=== PATIENT | male | born 1955 | race Caucasian/White ===

== ENCOUNTER → 2018-10-03 | Outpatient (CLI) | payer OTHER ==
[~2018-10-03] MED LIST: ceFAZolin 1 GM VIAL ONE
== END ==
LOC: CIMAGING 15:34
PROVIDERS: ATTEND Family Medicine
DX: R91.8 Other nonspecific abnormal finding of lung field (principal); S22.070A Wedge compression fracture of T9-T10 vertebra, initial encounter for closed fracture; M89.8X8 Other specified disorders of bone, other site
CPT/HCPCS: 71046-PO; 72070-PO; J0690

== ENCOUNTER 2018-10-05 13:17 | Day surgery (SDC) | payer OTHER ==
[2018-10-05] MEDS ORDERED: LR 1,000 ML IV ONE (13:51)
[2018-10-05] MEDS ORDERED: LIDOCAINE 1% 300 MG/30 ML SDV ONE (13:57)
[2018-10-05] MEDS ORDERED: BUPIVACAINE 0.5% 30 ML SDV ONE (13:57)
[2018-10-05] MEDS ORDERED: ceFAZolin 2 GM/DEXTROSE 100 ML IV ONE (14:48)
[2018-10-05] MEDS ORDERED: MIDAZOLAM 2 MG/2 ML VIAL IVP ONE (14:54)
--- NOTE | 2018-10-05 14:58 | PDANEPAE ---
ANE History of Present Illness Right cervical Bx ANE Past Medical History - Cardiovascular History Hx Hypertension: No Hx Arrhythmias: No Hx Chest Pain: No Hx Coronary Artery / Peripheral Vascular Disease: No Hx CHF / Valvular Disease: No Hx Palpitations: No - Pulmonary History Hx COPD: No Hx Asthma/Reactive Airway Disease: No Hx Recent Upper Respiratory Infection: No Hx Oxygen in Use at Home: No Hx Sleep Apnea: No Sleep Apnea Screening Result - Last Documented: Negative - Neurologic History Hx Cerebrovascular Accident: No Hx Seizures: No Hx Dementia: No - Endocrine History Hx Diabetes: No Hypothyroid: No Hyperthyroid: No Obesity: no - Renal History Hx Renal Disorders: No - Liver History Hx Hepatic Disorders: No - Neurological & Psychiatric Hx Hx Neurological and Psychiatric Disorders: No - Cancer History Hx Cancer: Yes Cancer History Comment: poss lymphoma - Congenital Disorder History Hx Congenital Disorders: No - GI History GERD: no Hx Gastrointestinal Disorders: No - Chronic Pain History Chronic Pain: Yes - Surgical History Prior Surgeries: vascetomy ANE Review of Systems Review of Systems: - Exercise capacity METS (RN): 5 METS ANE Patient History - Allergies Allergies/Adverse Reactions: No Known Allergies Allergy (Unverified 10/05/18 13:48) - Home Medications Home Medications: Ibuprofen 10/05/18 [Last Taken 10/05/18] Methocarbamol 750 mg PO PRN PRN 10/05/18 [Last Taken 10/04/18] traMADol [Ultram 50 mg (*)] 10/05/18 [Last Taken 10/05/18] - NPO status NPO Since - Liquids (Date): 10/05/18 NPO Since - Liquids (Time): 13:00 NPO Since - Solids (Date): 10/03/18 - Anes Hx Anes Hx: no prior problems - Smoking Hx Smoking Status: Never smoked - Family Anes Hx Family Hx Anesthesia Complications: na ANE Labs/Vital Signs - Vital Signs Blood Pressure: 158/96 Heart Rate: 106 Respiratory Rate: 16 O2 Sat (%): 98 Height: 184.79 cm Weight: 75.296 kg ANE Physical Exam - Airway Neck exam: FROM Mallampati Score: Class 1 Mouth exam: normal dental/mouth exam - Pulmonary Pulmonary: no respiratory distress, no rales or rhonchi - Cardiovascular Cardiovascular: regular rate and rhythym, no murmur, rub, or gallop ANE Anesthesia Plan Anesthesia Plan: MAC Total IV Anesthesia: Yes
[2018-10-05] MEDS ORDERED: MIDAZOLAM 2 MG/2 ML VIAL ONE (15:01)
[2018-10-05] MEDS ORDERED: fentaNYL 100 MCG/2 ML INJ ONE (15:04)
[2018-10-05] MEDS ORDERED: PROPOFOL/EMULSION 500 MG/50 ML BOTTLE IV ONE (15:04)
[2018-10-05] MEDS ORDERED: HYDROCODONE/APAP 5/325 TAB PO PRN (15:48)
[2018-10-05] MEDS ORDERED: ONDANSETRON 4 MG/2 ML VIAL IVP PRN (15:48)
[2018-10-05] MEDS ORDERED: NALOXONE HCL 0.4 MG/ML INJ IVP PRN (15:48)
[2018-10-05] MEDS ORDERED: HYDROmorphONE/DILAUDID 2 MG/ML INJ IVP PRN (15:48)
[2018-10-05] MEDS ORDERED: ACETAMINOPHEN 500 MG TAB PO PRN (15:48)
[2018-10-05] MEDS ORDERED: oxyCODONE IR 5 MG TAB PO PRN (15:48)
[2018-10-05] MEDS ORDERED: fentaNYL 100 MCG/2 ML INJ IVP PRN (15:48)
--- NOTE | 2018-10-05 15:51 | POSTOPPROG ---
Post Op Note Date of Operation: 10/05/18 Surgeon: Evelia Rebollar Anesthesiologist: radha Anesthesia: IV Sedation Pre-op Diagnosis: lung mass, lymphadenopathy Post-op Diagnosis: same Indication: 63 yo with lung mass, pathologic fx and lymphadenopathy Procedure: excisional biopsy r cervical lymph nodes Findings: multiple firm nodes Inf/Abcess present in the surg proc area at time of surgery?: No Specimen(s): lymph nodes
[2018-10-05] MEDS ORDERED: oxyCODONE IR 5 MG TAB ONE (16:58)
[2018-10-05 17:41] VITALS: BP 155/87
--- NOTE | 2018-10-06 06:58 | GOP ---
[f rep st] OPERATIVE REPORT DATE OF OPERATION: 10/05/2018 SURGEON: Evelia Rebollar MD CHILD CARE ASSOCIATE: Stephanie Hall PA-C ANESTHESIA: Dr. Shaista Em/monitored anesthesia care with IV sedation. PREOPERATIVE DIAGNOSIS: 1. Lung mass. 2. Pathologic fractures. 3. Cervical lymphadenopathy. POSTOPERATIVE DIAGNOSIS: 1. Lung mass. 2. Pathologic fractures. 3. Cervical lymphadenopathy. PROCEDURE PERFORMED: Excision right cervical lymph nodes. FINDINGS: enlarged lymph node SPECIMENS: 2 cervical lymph nodes. ESTIMATED BLOOD LOSS: 5 cc. INDICATIONS: The patient is a 63-year-old man who was relatively healthy. He started developing pain in his back that was worsening. He presented and was found to have a lung mass, pathologic fractures, and on physical exam also had cervical lymphadenopathy. Likely that he has a lung cancer. Biopsy indicated. He will be starting steroids this evening. DESCRIPTION OF PROCEDURE: Patient was brought into the operating room, placed supine on the table. Monitored anesthesia care with IV sedation was performed. His neck was prepped and draped in the usual sterile fashion. I infiltrated the area with 6 cc of 0.5% Marcaine mixed with 1% lidocaine. I dissected down through the skin, subcutaneous tissue. I then divided the platysma. I continued my dissection and retracted the sternocleidomastoid. I then could identify an enlarged lymph node. I was able to excise 2 lymph nodes that were right next to each other. Hemostasis achieved. Muscle reapproximated with 3-0 Vicryl. Skin closed with 0 Vicryl, followed by 4-0 Monocryl. Mastisol, Steri- Strips applied. He was awakened in the operating room, transferred to PACU in stable condition. /[id number]/MODL MTDD
== END 2018-10-05 17:30 | disposition home or self-care (01) ==
LOC: FSGY 13:17
PROVIDERS: ATTEND Surgery
PROC: 07B10ZX Excision of Right Neck Lymphatic, Open Approach, Diagnostic (ICD-10-PCS; principal; 2018-10-05 14:45)
DX: R91.8 Other nonspecific abnormal finding of lung field (principal); R59.1 Generalized enlarged lymph nodes; M84.48XA Pathological fracture, other site, initial encounter for fracture
CPT/HCPCS: 88184-90; 88185-91; J2250; J2704; J3010

== ENCOUNTER → 2018-10-10 | Outpatient (CLI) | payer OTHER ==
[~2018-10-10] MED LIST changes: +GADOBUTROL 10 ML VIAL IVP ONE; -ceFAZolin 1 GM VIAL ONE
== END ==
LOC: FIMAGING 14:09
PROVIDERS: ATTEND Internal Medicine Hematology & Oncology
DX: C34.92 Malignant neoplasm of unspecified part of left bronchus or lung (principal); C79.51 Secondary malignant neoplasm of bone; M43.8X4 Other specified deforming dorsopathies, thoracic region; M43.8X6 Other specified deforming dorsopathies, lumbar region; R59.0 Localized enlarged lymph nodes
CPT/HCPCS: A9585